=== PATIENT | male | born 1945 ===

== ENCOUNTER 2022-10-22 17:33 | Inpatient (IN) | payer OTHER ==
[2022-10-22] MEDS ORDERED: SODIUM CHLORIDE 500 ML IV STA (19:40)
[2022-10-22 19:59] LABS: HEMATOCRIT 25.1 % (35.4-49); MCH 27.6 pg (25.7-33.7); MCHC 31.7 g/dl (32.0-35.9); MEAN CELL VOLUME 87.1 fl (80-96); MEAN PLT VOLUME 7.8 fl (7.5-11.1); PLATELET COUNT 109 10^3/uL (134-434); RBC 2.88 M/mm3 (4.00-5.60); RDW 22.2 % (11.9-15.9); WHITE BLOOD COUNT 18.1 K/mm3 (4.0-10.0)
[2022-10-22 20:13] LABS: EPI CELLS 9 /uL (0-25.1); HYALINE CASTS 31 /uL (0-3.1); PH,URINE 5.5 (5.0-8.0); URINE APPEARANCE CLEAR; URINE BACTERIA 149 /uL (0-1359); URINE BILIRUBIN NEGATIVE (NEGATIVE); URINE COLOR YELLOW; URINE GLUCOSE (UA) NEGATIVE (NEGATIVE); URINE KETONE TRACE (NEGATIVE); URINE LEUK ESTERASE 2+ (NEGATIVE); URINE NITRITE NEGATIVE (NEGATIVE); URINE PROTEIN 1+ (NEGATIVE); URINE RBC 21 /uL (0-23.9); URINE UROBILINOGEN 0.2 mg/dL (0.2-1.0); URINE WBC 529 /uL (0-25.8)
[2022-10-22] MEDS ORDERED: CEFTRIAXONE 1,000 MG in DEXTROSE 5%-WATER - 50 ML IVPB ONE (20:15)
[2022-10-22 20:30] LABS: CALCIUM 7.4 mg/dL (8.5-10.1)
[2022-10-22 20:31] LABS: BLOOD UREA NITROGEN 16.4 mg/dL (7-18)
[2022-10-22 20:34] LABS: CREATININE 1.5 mg/dL (0.55-1.3)
[2022-10-22 20:36] LABS: BILIRUBIN,TOTAL 0.4 mg/dL (0.2-1)
[2022-10-22] MEDS ORDERED: CEFTRIAXONE 1 GM/50 ML BAG ONE (20:47)
[2022-10-22] MEDS ORDERED: SODIUM CHLORIDE 0.9% 500 ML INFUS.BAG IV ONE (21:01)
[2022-10-22 21:44] LABS: ANISOCYTOSIS 1+; MACROCYTOSIS 0; PLATELET ESTIMATE DECREASED
[2022-10-22] MEDS ORDERED: VANCOMYCIN 1 GM in D5W (PRE-DOCKED) 1,000 MG/250 ML IVPB ONE (23:58)
[2022-10-23 00:02] LABS: HEMATOCRIT 23.1 % (35.4-49); HEMOGLOBIN 7.3 GM/dL (11.7-16.9); MCH 27.6 pg (25.7-33.7); MCHC 31.5 g/dl (32.0-35.9); MEAN CELL VOLUME 87.7 fl (80-96); MEAN PLT VOLUME 7.5 fl (7.5-11.1); PLATELET COUNT 96 10^3/uL (134-434); RBC 2.63 M/mm3 (4.00-5.60); RDW 21.8 % (11.9-15.9); WHITE BLOOD COUNT 16.2 K/mm3 (4.0-10.0)
[2022-10-23] MEDS ORDERED: VANCOMYCIN/WATER FOR INJ (PEG) 1,000 MG/200 ML BAG IVPB ONE (00:11)
[2022-10-23 00:20] LABS: N-TERMINAL BNP 3004.4 pg/ml (5-450)
[2022-10-23] MEDS ORDERED: PIPERACILLIN/TAZOB 3.375 GM 3.375 GM in DEXTROSE 5%-WATER - 50 ML IVPB ONE (01:51)
[2022-10-23] MEDS ORDERED: PIPERACILLIN/TAZOB 3.375 GM 3.375 GM/50 ML BAG IVPB ONE (01:55)
[2022-10-23] MEDS ORDERED: CALCIUM GLUCONATE 10% - 1,000 MG/10 ML VIAL IVPB ONE (02:07)
[2022-10-23] MEDS ORDERED: CALCIUM GLUC IN NACL, ISO-OSM 1 GM/50 ML BAG IVPB ONE (02:15)
[2022-10-23 06:53] LABS: ANISOCYTOSIS 3+; MACROCYTOSIS 0; OVALOCYTE 1+; ROULEAU 1+
[2022-10-23 07:51] VITALS: BMI 26.5
[2022-10-23] MEDS: TAMSULOSIN HCL 0.4 MG CAP PO SCH (09:29)
[2022-10-23] MEDS ORDERED: CEFTRIAXONE 1 GM in DEXTROSE 5%-WATER - 50 ML IVPB SCH (10:00)
[2022-10-23 11:08] LABS: BASO % 0.1 % (0-2.0); HEMATOCRIT 28.2 % (35.4-49); HEMOGLOBIN 9.2 GM/dL (11.7-16.9); LYMPH % 7.3 % (8-40); MCH 28.8 pg (25.7-33.7); MCHC 32.6 g/dl (32.0-35.9); MEAN CELL VOLUME 88.3 fl (80-96); MEAN PLT VOLUME 8.4 fl (7.5-11.1); MONO % 8.5 % (3.8-10.2); NEUT % 84.1 % (42.8-82.8); PLATELET COUNT 110 10^3/uL (134-434); RBC 3.19 M/mm3 (4.00-5.60); RDW 20.8 % (11.9-15.9); WHITE BLOOD COUNT 16.7 K/mm3 (4.0-10.0)
[2022-10-23 11:13] LABS: INR 1.35 (0.83-1.09); PROTHROMBIN TIME (PATIENT) 15.6 SEC (9.7-13.0)
[2022-10-23 11:16] LABS: ACTIVATED PTT 28.1 SECONDS (25.2-36.5)
[2022-10-23 11:22] LABS: CALCIUM 8.1 mg/dL (8.5-10.1)
[2022-10-23 11:23] LABS: ALBUMIN 2.9 g/dl (3.4-5.0); BLOOD UREA NITROGEN 17.7 mg/dL (7-18)
[2022-10-23 11:24] LABS: MAGNESIUM 1.9 mg/dL (1.8-2.4)
[2022-10-23 11:26] LABS: PHOSPHOROUS 2.1 mg/dL (2.5-4.9)
[2022-10-23 11:28] LABS: BILIRUBIN,TOTAL 0.7 mg/dL (0.2-1); CREATININE 1.4 mg/dL (0.55-1.3); TOT PROT 5.9 g/dl (6.4-8.2)
[2022-10-23] MEDS ORDERED: SODIUM PHOSPHATE - 0 MM in SODIUM CHLORIDE 250 ML IVPB ONE (12:15)
[2022-10-23] MEDS ORDERED: AZITHROMYCIN 500 MG TABLET PO SCH (12:45)
[2022-10-23] MEDS ORDERED: AZITHROMYCIN 250 MG TABLET PO SCH (13:00)
[2022-10-23] MEDS ORDERED: SODIUM PHOSPHATE - 30 MM in SODIUM CHLORIDE 250 ML IVPB ONE (13:30)
[2022-10-23] MEDS: DOCUSATE SODIUM 100 MG CAPSULE (FP) PO SCH (14:02)
[2022-10-23] MEDS: FERROUS SO4 325 MG TABLET (FP) PO SCH ×2 (14:14→22:08)
[2022-10-23] MEDS ORDERED: LACTATED RINGERS SOLUTION 1,000 ML/1,000 ML INFUS.BAG IV SCH (14:15)
[2022-10-23] MEDS: ATORVASTATIN CA 10 MG TABLET (FP) PO SCH (22:08)
[2022-10-24] MEDS ORDERED: ACETAMINOPHEN 1000 MG/100 ML BAG IVPB ONE (00:08)
[2022-10-24 07:31] LABS: BASO % 0.1 % (0-2.0); EOS % 0.1 % (0-4.5); HEMATOCRIT 26.8 % (35.4-49); HEMOGLOBIN 8.6 GM/dL (11.7-16.9); LYMPH % 9.7 % (8-40); MCHC 32.1 g/dl (32.0-35.9); MEAN CELL VOLUME 87.3 fl (80-96); MEAN PLT VOLUME 8.1 fl (7.5-11.1); MONO % 11.1 % (3.8-10.2); PLATELET COUNT 97 10^3/uL (134-434); RBC 3.07 M/mm3 (4.00-5.60); RDW 20.7 % (11.9-15.9)
[2022-10-24 07:55] LABS: ALBUMIN 2.6 g/dl (3.4-5.0); CALCIUM 8.2 mg/dL (8.5-10.1)
[2022-10-24 07:56] LABS: BLOOD UREA NITROGEN 15.3 mg/dL (7-18)
[2022-10-24 07:59] LABS: CREATININE 1.1 mg/dL (0.55-1.3); PHOSPHOROUS 3.2 mg/dL (2.5-4.9)
[2022-10-24 08:00] LABS: BILIRUBIN,TOTAL 0.3 mg/dL (0.2-1); TOT PROT 5.5 g/dl (6.4-8.2)
[2022-10-24] MEDS ORDERED: CEFTRIAXONE 2 GM in DEXTROSE 5%-WATER 100 ML IVPB SCH (10:00)
[2022-10-24] MEDS: FERROUS SO4 325 MG TABLET (FP) PO SCH ×2 (10:49→21:09)
[2022-10-24] MEDS: TAMSULOSIN HCL 0.4 MG CAP PO SCH (10:49)
[2022-10-24] MEDS: DOCUSATE SODIUM 100 MG CAPSULE (FP) PO SCH (10:49)
[2022-10-24] MEDS: MEROPENEM 1 GM in DEXTROSE 5%-WATER 100 ML IVPB SCH ×2 (13:40→21:09)
[2022-10-24] MEDS: ATORVASTATIN CA 10 MG TABLET (FP) PO SCH (21:09)
[2022-10-25] MEDS: MEROPENEM 1 GM in DEXTROSE 5%-WATER 100 ML IVPB SCH ×2 (05:21→14:33)
[2022-10-25 07:37] LABS: HEMATOCRIT 27.9 % (35.4-49); HEMOGLOBIN 9.1 GM/dL (11.7-16.9); MCH 28.8 pg (25.7-33.7); MCHC 32.7 g/dl (32.0-35.9); MEAN PLT VOLUME 8.4 fl (7.5-11.1); PLATELET COUNT 103 10^3/uL (134-434); RBC 3.17 M/mm3 (4.00-5.60); RDW 20.6 % (11.9-15.9); WHITE BLOOD COUNT 10.1 K/mm3 (4.0-10.0)
[2022-10-25 08:03] LABS: ALBUMIN 2.7 g/dl (3.4-5.0)
[2022-10-25 08:05] LABS: CALCIUM 8.4 mg/dL (8.5-10.1)
[2022-10-25 08:06] LABS: BLOOD UREA NITROGEN 10.7 mg/dL (7-18)
[2022-10-25 08:10] LABS: BILIRUBIN,TOTAL 0.3 mg/dL (0.2-1); TOT PROT 5.7 g/dl (6.4-8.2)
[2022-10-25] MEDS: TAMSULOSIN HCL 0.4 MG CAP PO SCH (10:03)
[2022-10-25] MEDS: FERROUS SO4 325 MG TABLET (FP) PO SCH ×2 (10:03→21:12)
[2022-10-25] MEDS: DOCUSATE SODIUM 100 MG CAPSULE (FP) PO SCH (10:04)
[2022-10-25] MEDS: ATORVASTATIN CA 10 MG TABLET (FP) PO SCH (21:12)
[2022-10-26 08:36] LABS: HEMATOCRIT 33.2 % (35.4-49); HEMOGLOBIN 10.6 GM/dL (11.7-16.9); MCH 28.4 pg (25.7-33.7); MEAN CELL VOLUME 88.8 fl (80-96); MEAN PLT VOLUME 8.6 fl (7.5-11.1); PLATELET COUNT 125 10^3/uL (134-434); RBC 3.74 M/mm3 (4.00-5.60); RDW 21.1 % (11.9-15.9); WHITE BLOOD COUNT 7.9 K/mm3 (4.0-10.0)
[2022-10-26 09:18] LABS: ALBUMIN 3.2 g/dl (3.4-5.0); BLOOD UREA NITROGEN 9.4 mg/dL (7-18); CALCIUM 8.9 mg/dL (8.5-10.1)
[2022-10-26 09:23] LABS: BILIRUBIN,TOTAL 0.5 mg/dL (0.2-1); TOT PROT 6.7 g/dl (6.4-8.2)
[2022-10-26] MEDS: ENALAPRIL MALEATE 5 MG TABLET PO SCH (09:42)
[2022-10-26] MEDS: TAMSULOSIN HCL 0.4 MG CAP PO SCH (09:42)
[2022-10-26] MEDS: FERROUS SO4 325 MG TABLET (FP) PO SCH ×2 (09:43→21:18)
[2022-10-26] MEDS: DOCUSATE SODIUM 100 MG CAPSULE (FP) PO SCH (09:43)
[2022-10-26] MEDS ORDERED: CEFTRIAXONE 2 GM in DEXTROSE 5%-WATER 100 ML IVPB SCH (10:00)
[2022-10-26] MEDS: ATORVASTATIN CA 10 MG TABLET (FP) PO SCH (21:18)
[2022-10-27] MEDS: FERROUS SO4 325 MG TABLET (FP) PO SCH (10:34)
[2022-10-27] MEDS: ENALAPRIL MALEATE 5 MG TABLET PO SCH (10:34)
[2022-10-27] MEDS: DOCUSATE SODIUM 100 MG CAPSULE (FP) PO SCH (10:34)
[2022-10-27] MEDS: TAMSULOSIN HCL 0.4 MG CAP PO SCH (10:35)
[2022-10-27 11:00] VITALS: BP 131/67; PULSE 68; RESP 24; TEMP 98.7
== END 2022-10-27 12:52 | disposition home or self-care (01) | DRG 871 ==
LOC: JER 17:33 → JERBED 20:21 → JICU 10-23 08:23 → J4S 10-23 20:32
PROVIDERS: ADMIT Internal Medicine; ATTEND Internal Medicine
PROC: 30233N1 Transfusion of Nonautologous Red Blood Cells into Peripheral Vein, Percutaneous Approach (ICD-10-PCS; principal; 2022-10-23)
DX: A41.89 Other specified sepsis (principal); I21.4 Non-ST elevation (NSTEMI) myocardial infarction; J18.9 Pneumonia, unspecified organism; R65.21 Severe sepsis with septic shock; N17.9 Acute kidney failure, unspecified; N39.0 Urinary tract infection, site not specified; I24.8 Other forms of acute ischemic heart disease; I10 Essential (primary) hypertension; E78.5 Hyperlipidemia, unspecified; K21.9 Gastro-esophageal reflux disease without esophagitis; N40.0 Benign prostatic hyperplasia without lower urinary tract symptoms; N45.1 Epididymitis; D64.9 Anemia, unspecified; I44.0 Atrioventricular block, first degree; N50.3 Cyst of epididymis; N43.2 Other hydrocele; D72.829 Elevated white blood cell count, unspecified; D69.6 Thrombocytopenia, unspecified; B96.4 Proteus (mirabilis) (morganii) as the cause of diseases classified elsewhere; B95.2 Enterococcus as the cause of diseases classified elsewhere; E88.09 Other disorders of plasma-protein metabolism, not elsewhere classified; N28.1 Cyst of kidney, acquired
CPT/HCPCS: 0241U-QW; 36415; 36430; 71045-TC-FY; 74177-TC; 76775-TC; 76856-TC; 76870-TC; 80053; 81003; 82272; 82607; 82728; 82747; 83540; 83550; 83605; 83735; 83880; 84100; 84439; 84443; 84484; 85014; 85025; 85027; 85032; 85045; 85384; 85610; 85730; 86038; 86480; 86850; 86880; 86900; 86901; 86922; 87040; 87086; 87186; 87491; 87591; 87899; 93005; 93010; 93306-TC; 94010; 99285-25; P9058; Q9967